=== PATIENT | male | born 1950 | race Caucasian/White ===

== ENCOUNTER 2024-04-08 15:34 | Emergency (ER) | payer MEDICARE ==
[2024-04-08] MEDS: Bacitracin Oint 1 GM U/D Packet TOP ONE (16:34)
[2024-04-08] MEDS: Lidocaine 1% 10 ML MDV INJECT ONE (16:34)
[2024-04-08] MEDS: Diphtheria,Pertussis(Acell),Tetanus Vaccine 0.5 ML Syringe IM ONE (16:35)
== END 2024-04-08 17:08 | disposition home or self-care (01) ==
LOC: JP.ED 15:34
DX: S61.012A Laceration without foreign body of left thumb without damage to nail, initial encounter (principal); I10 Essential (primary) hypertension; E78.00 Pure hypercholesterolemia, unspecified; Z23 Encounter for immunization; Z95.5 Presence of coronary angioplasty implant and graft; Z79.899 Other long term (current) drug therapy; Z88.8 Allergy status to other drugs, medicaments and biological substances; W26.0XXA Contact with knife, initial encounter
CPT/HCPCS: 12002; 90471; 90715; 99282; 99282-25